=== PATIENT | female | born 1970 | race Caucasian/White ===

== ENCOUNTER 2024-02-20 15:04 | Emergency (ER) | payer OTHER ==
--- NOTE | 2024-02-20 15:10 | NUR ---
CALLED PT NAME IN LOBBY, NO ANSWER, PT IN LOBBY STATED SHE SAW PT LEAVE.
--- NOTE | 2024-02-20 15:10 | NUR ---
PATIENT LEFT WITHOUT BEING SEEN BY DR. TEJEDA. NO FURTHER CARE PROVIDED FOR PATIENT.
[2024-02-20 15:15] VITALS: BP 134/83; PULSE 84; RESP 18; TEMP 97.4; O2SAT 97
== END 2024-02-20 15:10 | disposition left against medical advice (07) ==
LOC: MED 15:04
DX: R69 Illness, unspecified (principal); Z53.21 Procedure and treatment not carried out due to patient leaving prior to being seen by health care provider

== ENCOUNTER 2024-03-02 13:19 | Emergency (ER) | payer OTHER ==
[~2024-03-02] VITALS: Ht 154.9 cm; Wt 72.6 kg
[2024-03-02 13:46] VITALS: BP 112/76; PULSE 65; RESP 18; TEMP 97.7; O2SAT 99
[2024-03-02] MEDS: KETOROLAC 30 MG/ML VIAL IM ONE (15:30)
[2024-03-02] MEDS ORDERED: ACET500T99 PO (15:44)
[2024-03-02] MEDS ORDERED: IBUP-2213 PO (15:44)
== END 2024-03-02 15:47 | disposition home or self-care (01) ==
LOC: MED 13:19
DX: R51.9 Headache, unspecified (principal); E11.9 Type 2 diabetes mellitus without complications; I10 Essential (primary) hypertension; Z79.899 Other long term (current) drug therapy
CPT/HCPCS: 96372; 99283; J1885